=== PATIENT | female | born 1950 | race African-American/Black ===

== ENCOUNTER 2016-07-07 16:46 | Observation (INO) | payer MEDICARE ==
--- NOTE | 2016-07-07 17:04 | PDOC ---
History of Present Illness - General History Source: Patient Exam Limitations: No Limitations - History of Present Illness Initial Comments: 07/07/16 17:28 The patient is a 65 year old female brought via EMS, with a significant past medical history of diabetes and hypertension, who presents to the emergency department with nausea, vomit and lightheadedness onset today. She notes that she felt as if her blood pressure was high and took her medication. Her symptoms began shortly after. She notes that her vomit was nonbilious and nonbloody. The patient denies chest pain, shortness of breath and eadache. Denies fever, chills, diarrhea and constipation. Allergies: None Past surgical history: None reported Social history: No alcohol, tobacco or drug use reported <Shahram Healy - Last Filed: 07/07/16 18:10> <Kevon Jeong - Last Filed: 07/07/16 19:03> - General Chief Complaint: Nausea/Vomiting Stated Complaint: HYPERTENSION/N/V Time Seen by Provider: 07/07/16 17:04 Past History <Shahram Healy - Last Filed: 07/07/16 18:10> - Psycho/Social/Smoking Cessation Hx Suicidal Ideation: No Smoking History: Never smoked <Kevon Jeong - Last Filed: 07/07/16 19:03> - Past Medical History Allergies/Adverse Reactions: Allergies Allergy/AdvReac Type Severity Reaction Status Date / Time No Known Allergies Allergy Verified 07/07/16 16:55 Home Medications: Ambulatory Orders Aspirin [ASA -] 81 mg PO DAILY 07/07/16 Review of Systems - Review of Systems Able to Perform ROS?: Yes Comments:: 07/07/16 17:29 GENERAL/CONSTITUTIONAL: No fever or chills. No weakness. HEAD, EYES, EARS, NOSE AND THROAT: No change in vision. No ear pain or discharge. No sore throat. CARDIOVASCULAR: +Lightheadedness. No chest pain or shortness of breath RESPIRATORY: No cough, wheezing, or hemoptysis. GASTROINTESTINAL: +Nausea and vomiting. No diarrhea or constipation. GENITOURINARY: No dysuria, frequency, or change in urination. MUSCULOSKELETAL: No joint or muscle swelling or pain. No neck or back pain. SKIN: No rash NEUROLOGIC: No headache, loss of consciousness, or change in strength/sensation. ENDOCRINE: No increased thirst. No abnormal weight change HEMATOLOGIC/LYMPHATIC: No anemia, easy bleeding, or history of blood clots. ALLERGIC/IMMUNOLOGIC: No hives or skin allergy. <Shahram Healy - Last Filed: 07/07/16 18:10> *Physical Exam - Vital Signs Last Vital Signs Temp Pulse Resp BP Pulse Ox 97.5 F L 98 H 16 174/98 100 07/07/16 16:56 07/07/16 16:56 07/07/16 16:56 07/07/16 16:56 07/07/16 16:56 - Physical Exam Comments: 07/07/16 17:29 GENERAL: Awake, alert, and fully oriented, appears ill, slow to respond HEAD: No signs of trauma, normocephalic, atraumatic EYES: PERRLA, EOMI, sclera anicteric, conjunctiva clear ENT: Auricles normal inspection, hearing grossly normal, nares patent, oropharynx clear without exudates. Moist mucosa NECK: Normal ROM, supple, no lymphadenopathy, JVD, or masses LUNGS: No distress, speaks full sentences, clear to auscultation bilaterally HEART: Regular rate and rhythm, normal S1 and S2, no murmurs, rubs or gallops, peripheral pulses normal and equal bilaterally. ABDOMEN: Soft, nontender, normoactive bowel sounds. No guarding, no rebound. No masses EXTREMITIES: Normal inspection, Normal range of motion, no edema. No clubbing or cyanosis. NEUROLOGICAL: Cranial nerves II through XII grossly intact. Normal speech, normal gait, no focal sensorimotor deficits SKIN: Warm, Dry, normal turgor, no rashes or lesions noted. <Shahram Healy - Last Filed: 07/07/16 18:10> - Vital Signs Last Vital Signs Temp Pulse Resp BP Pulse Ox 97.5 F L 98 H 16 174/98 100 07/07/16 16:56 07/07/16 16:56 07/07/16 16:56 07/07/16 16:56 07/07/16 16:56 <Kevon Jeong - Last Filed: 07/07/16 19:03> ED Treatment Course - LABORATORY CBC & Chemistry Diagram: 07/07/16 17:20 07/07/16 17:30 - RADIOLOGY Radiograph Interpretation: 07/07/16 18:10 Chest X-Ray Reviewed by: Dr. Dieudonne Luu Impression: No evidence of active pulmonary disease. Head CT Reviewed by: Dr. Robert Crabtree Impression: There is no CT evidence of acute intracranial pathology. A small to moderate amount of nonspecific fluid accumulation is seen within the left mastoid air cells. <Shahram Healy - Last Filed: 07/07/16 18:10> - LABORATORY CBC & Chemistry Diagram: 07/07/16 17:20 07/07/16 17:30 <Kevon Jeong - Last Filed: 07/07/16 19:03> *DC/Admit/Observation/Transfer - Attestations Scribe Attestion: 07/07/16 17:29 Documentation prepared by Shahram Healy, acting as medical assistant secretary for Kevon Jeong MD <Shahram Healy - Last Filed: 07/07/16 18:10> - Discharge Dispostion Admit: Yes - Attestations Physician Attestion: 07/07/16 17:04 I, Dr. Kevon Jeong, attest that this document has been prepared under my direction and personally reviewed by me in its entirety. I further attest, that it accurately reflects all work, treatment, procedures and medical decision -making performed by me. <Kevon Jeong - Last Filed: 07/07/16 19:03> Diagnosis at time of Disposition: Hypertensive urgency - Discharge Dispostion Condition at time of disposition: Improved
[2016-07-07 17:17] VITALS: BMI 27.4
[2016-07-07] MEDS ORDERED: SODIUM CHLORIDE 500 ML IV STA ×2 (17:21→18:38)
[2016-07-07] MEDS ORDERED: cloNIDine HCL 0.1 MG TABLET PO ONE (17:24)
[2016-07-07] MEDS ORDERED: ONDANSETRON 4 MG/2 ML VIAL IVPB ONE (17:25)
[2016-07-07] MEDS ORDERED: ONDANSETRON 4 MG/2 ML VIAL ONE (17:33)
[2016-07-07] MEDS ORDERED: cloNIDine HCL 0.1 MG TABLET ONE (17:33)
[2016-07-07 17:53] LABS: BASOPHIL 0.5 % (0-2.0); EOSINOPHIL 0.1 % (0-4.5); MCH 29.9 pg (25.7-33.7); MCHC 34.8 g/dl (32.0-36.0); MEAN CELL VOLUME 85.8 fl (80-96); MEAN PLT VOLUME 8.9 fl (7.5-11.1); NEUTROPHILS 80.1 % (42.8-82.8); PLATELET COUNT 308 K/MM3 (134-434); RDW 12.9 % (11.6-15.6); WHITE BLOOD COUNT 10.7 K/mm3 (4.0-10.0)
[2016-07-07 18:10] LABS: INR 1.01 (0.82-1.09); PROTHROMBIN TIME (PATIENT) 11.1 SEC (9.98-11.88)
[2016-07-07 18:21] LABS: ALBUMIN 4.3 g/dl (3.4-5.0); ANION GAP 11 (8-16); BILIRUBIN,TOTAL 0.8 mg/dL (0.2-1.0); CALCIUM 10.2 mg/dL (8.5-10.1); CO2 25 mmol/L (21-32); CREATININE 0.7 mg/dL (0.55-1.02); GLUCOSE,RANDOM 212 mg/dL (74-106); MAGNESIUM 1.9 mg/dL (1.8-2.4); SGOT/AST 32 U/L (15-37); SGPT/ALT 65 U/L (12-78); TOT PROT 8.8 g/dl (6.4-8.2)
[2016-07-07 18:23] LABS: ALK PHOS 79 U/L (45-117); TROPONIN I < 0.02 ng/ml (0.00-0.05)
[2016-07-07 18:29] LABS: URINE APPEARANCE CLEAR; URINE BILIRUBIN NEGATIVE (NEGATIVE); URINE BLOOD NEGATIVE (NEGATIVE); URINE COLOR COLORLESS; URINE GLUCOSE (UA) 3+ (NEGATIVE); URINE KETONE 1+ (NEGATIVE); URINE LEUK ESTERASE NEGATIVE (NEGATIVE); URINE NITRITE NEGATIVE (NEGATIVE); URINE PROTEIN NEGATIVE (NEGATIVE); URINE UROBILINOGEN NEGATIVE E.U./dl (0.2-1.0)
[2016-07-07] MEDS ORDERED: hydrALAZINE HCL 20 MG/ML VIAL IVPUSH ONE (18:47)
[2016-07-07] MEDS ORDERED: hydrALAZINE HCL 20 MG/ML VIAL ONE (18:57)
--- NOTE | 2016-07-07 19:06 | PN ---
<Teo Coreas - Last Filed: 07/07/16 19:05> Teaching Attending Note Name of Resident: Sg Pedro ATTENDING PHYSICIAN STATEMENT I saw and evaluated the patient. I reviewed the resident's note and discussed the case with the resident. I agree with the resident's findings and plan as documented. SUBJECTIVE: OBJECTIVE: ASSESSMENT AND PLAN: <BijanLindsay - Last Filed: 07/07/16 21:09> Teaching Attending Note ATTENDING PHYSICIAN STATEMENT I saw and evaluated the patient. I reviewed the resident's note and discussed the case with the resident. I agree with the resident's findings and plan as documented. SUBJECTIVE: The patient is a 65 yo F with a PMHx of Diabetes, HTN who presents with nausea, vomiting and lightheadedness. Found to have uncontrolled HTN in the ED. 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 States she has had this in the past years and is not new. Patient denies chest pain, headache, dizziness or SOB. She denies fever, chills, diarrhea or constipation. She denies dysuria, frequency, urgency or hematuria. OBJECTIVE: Physical Last Vital Signs Temp Pulse Resp BP Pulse Ox 97.5 F L 103 H 18 175/87 98 07/07/16 16:56 07/07/16 18:58 07/07/16 18:58 07/07/16 18:58 07/07/16 18:58 GEN: NAD +R facial droop HEENT: NCAT, PERRL CARD: RRR, S1 S2 RESP: CTAB ABD: NT, BWS x4 EXT: - CCE SKIN: 5 cm x 3 cm lipoma on R upper back CBCD WBC 10.7 K/mm3 (4.0-10.0) H 07/07/16 17:20 RBC 4.23 M/mm3 (3.60-5.2) 07/07/16 17:20 Hgb 12.6 GM/dL (10.7-15.3) 07/07/16 17:20 Hct 36.3 % (32.4-45.2) 07/07/16 17:20 MCV 85.8 fl (80-96) 07/07/16 17:20 MCHC 34.8 g/dl (32.0-36.0) 07/07/16 17:20 RDW 12.9 % (11.6-15.6) 07/07/16 17:20 Plt Count 308 K/MM3 (134-434) 07/07/16 17:20 MPV 8.9 fl (7.5-11.1) 07/07/16 17:20 CMP Sodium 135 mmol/L (136-145) L 07/07/16 17:30 Potassium 3.5 mmol/L (3.5-5.1) 07/07/16 17:30 Chloride 99 mmol/L (98-107) 07/07/16 17:30 Carbon Dioxide 25 mmol/L (21-32) 07/07/16 17:30 Anion Gap 11 (8-16) 07/07/16 17:30 BUN 16 mg/dL (7-18) 07/07/16 17:30 Creatinine 0.7 mg/dL (0.55-1.02) 07/07/16 17:30 Creat Clearance w eGFR > 60 (>60) 07/07/16 17:30 Calcium 10.2 mg/dL (8.5-10.1) H 07/07/16 17:30 Total Bilirubin 0.8 mg/dL (0.2-1.0) 07/07/16 17:30 AST 32 U/L (15-37) 07/07/16 17:30 ALT 65 U/L (12-78) 07/07/16 17:30 Alkaline Phosphatase 79 U/L (45-117) 07/07/16 17:30 Total Protein 8.8 g/dl (6.4-8.2) H 07/07/16 17:30 Albumin 4.3 g/dl (3.4-5.0) 07/07/16 17:30 Imaging: Head CT Impression: There is no CT evidence of acute intracranial pathology. A small to moderate amount of nonspecific fluid accumulation is seen within the left mastoid air cells. Chest Xray Impression: No evidence of active pulmonary disease. EKG Impression: Sinus Tachycardia at 106 Increased QTC at 536 Q waves in septal leads ASSESSMENT AND PLAN: The patient is a 65 yo F with a PMHx of DM, HTN, CVA with R sided facial droop who is being admitted for uncontrolled HTN. 1.) Uncontrolled HTN -Most likely due to vomiting of home PO meds -restart home PO meds -Avoid ASHLEY as patient had previous angioedema -Trend troponins/EKG 2.) Vomiting -Most likely due to viral gastroenteritis -Continue with compazine 3.) History of CVA -Restart home meds -Continue with aspirin -Negative CT head 4.) Diabetes -Fingersticks -RAISS 5.)DVT PPx -Low risk -SCDs Patient admitted to Observation Telemetry. Documentation prepared by Lindsay Thakkar, acting as bilingual medical assistant for Teo Coreas MD
--- NOTE | 2016-07-07 20:51 | HP ---
Addendum entered and electronically signed by Sg Pedro RES 07/08/16 05:09 : BP well controlled after one dose of 25 mg lopressor po. Will change metoprolol to 25 mg po bid. Will need to find out what her home meds are and to be restarted on those instead of metoprolol. Original Note: CHIEF COMPLAINT: High blood pressure and nausea and vomiting PCP: clinic at [facility] Pharmacy: [facility] pharmacy and she uses a pharmacy on "[address] [facility] [address] [facility]" (which upon searching looks to be [facility] ) HISTORY OF PRESENT ILLNESS: 65 y/o F w/PMH of HTN, DM, hx of CVA, presents to ER after onset of nausea and vomiting this morning at approximately 11am. She states that she measured her blood pressure at the time and it was in systolic 170s. She took her blood pressure medication (unknown what med it is), and she threw up shortly after. She had 3-4x episodes of vomiting (non-bloody). She states that her BP at home runs anywhere from 108 systolic to 170s systolic. [facility] sees physicians [facility]. She was recently prescribed a new htn med 1 month ago because with the last one she tried she got facial swelling. She also complained of some light-headedness and as if her heart was racing this morning along with the vomiting. She denies any CP, SOB, palpitations, abd pain, diarrhea, dysuria , leg swelling, tinnitus, change in vision, headache. 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 Lives in [place]. Family History: Father: HTN Allergies No Known Allergies Allergy (Verified 07/07/16 16:55) HOME MEDICATIONS: Home Medications Medication Instructions Recorded Aspirin [ASA -] 81 mg PO DAILY 07/07/16 REVIEW OF SYSTEMS CONSTITUTIONAL: Absent: fever, chills, diaphoresis, generalized weakness, malaise, loss of appetite, weight change HEENT: Absent: rhinorrhea, nasal congestion, throat pain, throat swelling, difficulty swallowing, mouth swelling, ear pain, eye pain, visual changes CARDIOVASCULAR: heart racing, light-headedness Absent: chest pain, syncope, palpitations, irregular heart rate, peripheral edema RESPIRATORY: Absent: cough, shortness of breath, dyspnea with exertion, orthopnea, wheezing, stridor, hemoptysis GASTROINTESTINAL: nausea, vomiting Absent: abdominal pain, abdominal distension, diarrhea, constipation, melena, hematochezia GENITOURINARY: Absent: dysuria, frequency, urgency, hesitancy, hematuria, flank pain, genital pain MUSCULOSKELETAL: Absent: myalgia, arthralgia, joint swelling, back pain, neck pain SKIN: Absent: rash, itching, pallor HEMATOLOGIC/IMMUNOLOGIC: Absent: easy bleeding, easy bruising, lymphadenopathy, frequent infections ENDOCRINE: Absent: unexplained weight gain, unexplained weight loss, heat intolerance, cold intolerance NEUROLOGIC: Absent: headache, focal weakness or paresthesias, dizziness, unsteady gait, seizure, mental status changes, bladder or bowel incontinence PSYCHIATRIC: Absent: anxiety, depression, suicidal or homicidal ideation, hallucinations. PHYSICAL EXAMINATION Vital Signs - 24 hr 07/07/16 07/07/16 07/07/16 16:56 17:32 17:57 Temperature 97.5 F L Pulse Rate 98 H Pulse Rate [ 92 H 97 H Apical] Respiratory 16 18 21 Rate Blood Pressure 174/98 Blood Pressure 162/95 153/93 [Right Arm] O2 Sat by Pulse 100 97 95 Oximetry (%) 07/07/16 07/07/16 07/07/16 18:58 19:29 19:39 Temperature 98.5 F 98.3 F Pulse Rate Pulse Rate [ 103 H 103 H Apical] Respiratory 18 18 Rate Blood Pressure Blood Pressure 175/87 161/90 [Right Arm] O2 Sat by Pulse 98 100 Oximetry (%) GENERAL: Awake, alert, and fully oriented, in no acute distress. HEAD: Normal with no signs of trauma. EYES: Pupils equal, round and reactive to light, extraocular movements intact, sclera anicteric, conjunctiva clear. No lid lag. EARS, NOSE, THROAT: Ears normal, nares patent, oropharynx clear without exudates. Moist mucous membranes. NECK: Normal range of motion LUNGS: Breath sounds equal, clear to auscultation bilaterally. No wheezes, and no crackles. No accessory muscle use. HEART: Irregular, tachycardic, normal S1 and S2 without murmur, rub or gallop. ABDOMEN: Soft, nontender, not distended, normoactive bowel sounds, no guarding, no rebound, no masses. No hepatomegaly or splenomegaly. MUSCULOSKELETAL: Normal range of motion at all joints. No bony deformities or tenderness. No CVA tenderness. UPPER EXTREMITIES: 2+ pulses, warm, well-perfused. No cyanosis. No clubbing. No peripheral edema. Strength 5/5 B/L UE LOWER EXTREMITIES: 2+ pulses, warm, well-perfused. No calf tenderness. No peripheral edema. NEUROLOGICAL: Cranial nerves II-XII intact. Normal speech. Gait not observed. Sensation to touch equal B/L on face, B/L UE, B/L LE. PSYCHIATRIC: Cooperative. Good eye contact. Appropriate mood and affect. SKIN: Warm, dry, normal turgor, no rashes or lesions noted, normal capillary refill. Lipoma on upper back approximately 5x3 cm. Laboratory Results - last 24 hr 07/07/16 07/07/16 07/07/16 17:20 17:20 17:20 WBC 10.7 H RBC 4.23 Hgb 12.6 Hct 36.3 MCV 85.8 MCHC 34.8 RDW 12.9 Plt Count 308 MPV 8.9 Neutrophils % 80.1 Lymphocytes % 15.6 Monocytes % 3.7 L Eosinophils % 0.1 Basophils % 0.5 INR 1.01 Sodium Potassium Chloride Carbon Dioxide Anion Gap BUN Creatinine Creat Clearance w eGFR Random Glucose Calcium Magnesium Total Bilirubin AST ALT Alkaline Phosphatase Creatine Kinase Troponin I Total Protein Albumin Lipase Urine Color Colorless Urine Appearance Clear Urine pH 8.0 Ur Specific [place] 1.010 Urine Protein Negative Urine Glucose (UA) 3+ H Urine Ketones 1+ H Urine Blood Negative Urine Nitrite Negative Urine Bilirubin Negative Urine Urobilinogen Negative Ur Leukocyte Esterase Negative 07/07/16 17:30 WBC RBC Hgb Hct MCV MCHC RDW Plt Count MPV Neutrophils % Lymphocytes % Monocytes % Eosinophils % Basophils % INR Sodium 135 L Potassium 3.5 Chloride 99 Carbon Dioxide 25 Anion Gap 11 BUN 16 Creatinine 0.7 Creat Clearance w eGFR > 60 Random Glucose 212 H Calcium 10.2 H Magnesium 1.9 Total Bilirubin 0.8 AST 32 ALT 65 Alkaline Phosphatase 79 Creatine Kinase 64 Troponin I < 0.02 Total Protein 8.8 H Albumin 4.3 Lipase 332 Urine Color Urine Appearance Urine pH Ur Specific [place] Urine Protein Urine Glucose (UA) Urine Ketones Urine Blood Urine Nitrite Urine Bilirubin Urine Urobilinogen Ur Leukocyte Esterase Imaging: CXR: 07/07/16: no evidence of active pulm disease processes Head CT: no acute pathology. small to moderate nonspecific fluid accumulation as seen in L mastoid air cells. Active Medications Insulin Aspart (Novolog Vial Sliding Scale -) 1 vial SQ ACHS BARBARA PRN Reason: Protocol Metoprolol Tartrate (Lopressor -) 50 mg PO BID BARBARA Prochlorperazine Maleate (Compazine -) 5 mg PO Q4H PRN PRN Reason: NAUSEA AND/OR VOMITING ASSESSMENT/PLAN: 65 y/o F w/PMH of HTN, DM, hx of CVA, presents to ER after onset of nausea and vomiting this morning and elevated BP as measured at home (systolic 170s at home ). Admitted to tele obs for uncontrolled HTN. -Uncontrolled HTN -Unknown home meds. States she gave her pills to EMS but they weren't brought in with her to hospital by EMS. -Attempted to call [facility] pharmacy - did not get any response when I called. -Called [facility] pharmacy but they were unable to locate pt with Name and . They would need pt's EMR number which is on her card for the clinic but pt does not have the card with her. Card is at home in [place]. -Given HZN IV and clonidine in ER -Ordered lopressor po 25mg once for now -Lopressor 50 mg po bid starting tomorrow am -If able to find out home meds, can start on that instead -trop neg x1, f/u trops -TSH added on -Head CT neg; no signs of end organ damage at this time. 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 -DM -BGM, ISS ACHS -A1C added on -DVT ppx -SCDs -FEN -no fluids -mild hyponatremia, monitor -sodium/diabetic diet -Dispo: -monitor in obs/tele Problem List - Problem (1) Gastroenteritis and colitis, viral Code(s): A08.4 - VIRAL INTESTINAL INFECTION, UNSPECIFIED (2) Uncontrolled hypertension Code(s): I10 - ESSENTIAL (PRIMARY) HYPERTENSION (3) Diabetes Code(s): E11.9 - TYPE 2 DIABETES MELLITUS WITHOUT COMPLICATIONS Visit type - Emergency Visit Emergency Visit: Yes ED Registration Date: 07/07/16 Care time: The patient presented to the Emergency Department on the above date and was hospitalized for further evaluation of their emergent condition. - New Patient This patient is new to me today: Yes Date on this admission: 07/07/16 - Critical Care Critical Care patient: No
--- NOTE | 2016-07-07 20:53 | MSN ---
Admitting History and Physical - Primary Care Physician PCP: [facility] - Admission Chief Complaint: Nausea/vomiting History of Present Illness: This is a 65 y/o F with Pmx of hypertension and DM II, admitted from the ER for uncontrolled hypertension. Patient complained of feeling nauseous at around 11 am today and thought it was due to her hypertension. She took her home meds but had three episodes of vomiting shortly after. Patient also states that she was feeling lightheaded and dizzy during that time as well. Patient complains of no pain at current time. Patient's BP is usually maintained between 108 to 170 systolic. Patient denies fever/chills, shortness of breath, chest pain, headaches, diarrhea. 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 No: AFIB, Aneurysm, Aortic Insufficiency, Aortic Stenosis, CAD, CHF, Deep Vein Thrombosis, Hyperlipdemia, SC, Mitral Insufficiency, Mitral Stenosis, Murmur, Pulmonary Hypertension, Other Pulmonary: No: Asthma, Bronchitis, Cancer, COPD, O2 Dependent, Pneumonia, Previously Intubated, Pulmonary Embolus, Pulmonary Fibrosis, Sleep Apnea, Other Gastrointestinal: No: Ascites, Cancer, Constipation, Crohn's Disease, Diverticulitis, Diverticulosis, Esophageal Varices, Gastritis, GERD, GI Bleed, Hemorrhoids, Hiatal Hernia, Inflamatory Bowel Disease, Irritable Bowel Disease, Pancreatitis, Peptic Ulcer Disease, Ulcerative Colitis, Other Hepatobiliary: No: Cirrhosis, Cholelithiasis, Cholecystitis, Choledocholithiasis , Hepatitis A, Hepatitis B, Hepatitis C, Other Renal/: No: Renal Failure, Renal Inusuff, BPH, Cancer, Hematuria, Hemodialysis , Neurogenic Bladder, Renal Calculi, UTI, Other Reproductive: No: Ectopic , Endometriosis, Fibroids, PID, Polycystic Ovary Syndrome, Postmenopausal, Other ...: No Heme/Onc: No: Anemia, B12 Deficiency, Bleeding Disorder, Cancer, Current Chemotherapy, Current Radiation Therapy, Hemochromatosis, Hypercoaguable State, Myeloproliferative Synd, Sickle Cell Disease, Sickle Cell Trait, Thrombocytopenia, Other Infectious Disease: No: AIDS, C-Diff, Herpes Zoster, HIV, MRSA, STD's, Tuberculosis, VREF, Other Psych: No: Addictions, Anxiety, Bipolar, Depression, Panic, Psychosis, Schizophrenia, Other Musculoskeletal: No: Bursitis, Chronic low back pain, Hemiparesis, Hemiplegia, Osteoarthritis, Paraplegia, Other Rheumatology: No: Fibromyalgia, Gout, Lupus, Rheumatoid Arthritis, Sarcoidosis, Vasculitis, Other ENT: No: Allergic Rhinitis, Sinusitis, Other Endocrine: Yes: Diabetes Mellitus. No: Cliff's Disease, Alna's Disease, Diabetes Insipidus, Hyperparathyroidism, Hyperthyroidism, Hypothyroidism, Osteopenia, SIADH, Other Dermatology: No: Basal Cell, Cellulitis, Eczema, Melanoma, Psoriasis, Squamous Cell, Other - Past Surgical History Past Surgical History: Yes: None. No: AAA Repair, AICD, Amputation, Appendectomy, Arthrosocopy, AV Fistula/Graft, Bariatric Surgery, Breast Biopsy, Bypass, CABG, Carotid Endarterectomy, Cataract Removal, Cholecystectomy, Colectomy, Colonoscopy, Colostomy, Craniotomy, , Cystectomy, Hernia Repair, Hysterectomy, Ileal Conduit, Ileosotomy, Joint Replacement, Kidney Transplant, Laminectomy, Liver Transplant, Mastectomy, Nephrectomy, Oopherectomy , Orchiectomy, Permanent Pacemaker, Prostatectomy, Splenectomy, Stent, Thoracotomy, TURP, Tonsillectomy, Tubal Ligation, Upper Endoscopy, Valve Replacement, Vasectomy, Vein Stripping/Ligation - Smoking History Smoking history: Never smoked - Alcohol/Substance Use Hx Alcohol Use: No History of Substance Use: denies: None, Cocaine, Heroin, Marijuana, Prescription , Tranquilizers - Social History Usual Living Arrangement: Yes: With Spouse ADL: Independent History of Recent Travel: No Home Medications - Allergies Allergies/Adverse Reactions: Allergies Allergy/AdvReac Type Severity Reaction Status Date / Time No Known Allergies Allergy Verified 07/07/16 16:55 - Home Medications Home Medications: Ambulatory Orders Aspirin [ASA -] 81 mg PO DAILY 07/07/16 Family Disease History - Family Disease History Family Disease History: Heart Disease: Father Review of Systems - Review of Systems Constitutional: reports: No Symptoms Eyes: reports: No Symptoms HENT: reports: No Symptoms Neck: reports: No Symptoms Cardiovascular: reports: No Symptoms Respiratory: reports: No Symptoms Gastrointestinal: reports: Nausea, Vomiting Genitourinary: reports: No Symptoms Breasts: reports: No Symptoms Reported Musculoskeletal: reports: No Symptoms Integumentary: reports: No Symptoms Neurological: reports: Dizziness Endocrine: reports: No Symptoms Hematology/Lymphatic: reports: No Symptoms Psychiatric: reports: No Symptoms Physical Examination Vital Signs: Vital Signs Temperature 98.3 F 07/07/16 19:39 Pulse Rate 103 H 07/07/16 19:29 Respiratory Rate 18 07/07/16 19:29 Blood Pressure 161/90 07/07/16 19:29 O2 Sat by Pulse Oximetry (%) 100 07/07/16 19:29 Constitutional: Yes: Well Nourished, No Distress, Calm Eyes: Yes: WNL, Conjunctiva Clear, EOM Intact HENT: Yes: WNL, Atraumatic, Normocephalic Neck: Yes: WNL, Supple, Trachea Midline Cardiovascular: Yes: WNL, Tachycardia, Pulse Irregular, S1, S2 Respiratory: Yes: WNL, Regular, CTA Bilaterally Gastrointestinal: Yes: WNL, Normal Bowel Sounds, Soft Renal/: Yes: WNL Musculoskeletal: Yes: WNL Extremities: Yes: WNL Edema: No Peripheral Pulses WNL: Yes Integumentary: Yes: WNL Neurological: Yes: WNL, Alert, Oriented ...Motor Strength: WNL Psychiatric: Yes: WNL, Alert, Oriented Imaging - Results Chest X-ray: Report Reviewed (Unremarkable) Cat Scan: Report Reviewed (Unremarkable) Problem List - Problems (1) Uncontrolled hypertension Assessment/Plan: Hydralazine 10 mg IV Push ONCE given in ER Clonidine 0.1 mg PO ONCE given in ER Lopressor 25 mg PO ONCE given now Start Lopressor 50 mg BID PO in AM on 07/08/16 Continue home medications if able to get Trops neg x 1, f/u tomorrow Continue to monitor vitals Code(s): I10 - ESSENTIAL (PRIMARY) HYPERTENSION (2) Diabetes type 2, controlled Assessment/Plan: Start SSI Continue blood glucose checks Code(s): E11.9 - TYPE 2 DIABETES MELLITUS WITHOUT COMPLICATIONS Qualifiers: Diabetes mellitus complication status: without complication (3) Gastroenteritis and colitis, viral Assessment/Plan: Start Compazine 5 mg PO Q4H PRN for nausea No Reglan or Zofran due to patient's prolonged QT Continue to monitor labs, WBC, trend Code(s): A08.4 - VIRAL INTESTINAL INFECTION, UNSPECIFIED Assessment/Plan 49 y/o F with Pmx of hypertension and DMII, admitted from ER for uncontrolled hypertension and N/V secondary to possible gastroenteritis 1. Uncontrolled hypertension - Hydralazine 10 mg IV Push ONCE given in ER - Clonidine 0.1 mg PO ONCE given in ER - Lopressor 25 mg PO ONCE now - Start Lopressor 50 mg BID PO tomorrow in the AM - Continue home medications if able to find out - Continue to monitor vitals 2. Viral gastroenteritis - Start Compazine 5 mg PO Q4H PRN for nausea - AVOID Reglan and Zofran due to pt's prolonged QT - Continue to monitor WBC, trend down 3. DM 2 - Start SSI, ACHS - Blood glucose checks - Add on A1C 4. DVT Prophylaxis - SCDs Dispo: Switch from inpatient to OBS with telemetry
[2016-07-07] MEDS ORDERED: PROCHLORPERAZINE MALEATE 5 MG TABLET PO PRN (20:54)
[2016-07-07] MEDS ORDERED: METOPROLOL TARTRATE 25 MG TABLET (FP) PO ONE (20:54)
[2016-07-07] MEDS ORDERED: METOPROLOL TARTRATE 25 MG TABLET (FP) ONE (20:58)
[2016-07-07] MEDS ORDERED: METOPROLOL TARTRATE 50 MG TABLET (FP) PO SCH (22:00)
[2016-07-07] MEDS: INSULIN SLIDING SCALE (NOVOLOG) 1 VIAL SQ SCH (23:06)
[2016-07-08] MEDS: INSULIN SLIDING SCALE (NOVOLOG) 1 VIAL SQ SCH ×3 (06:14→18:02)
[2016-07-08 07:40] LABS: BASOPHIL 0.6 % (0-2.0); EOSINOPHIL 0.4 % (0-4.5); MCHC 34.7 g/dl (32.0-36.0); MEAN CELL VOLUME 86.4 fl (80-96); MEAN PLT VOLUME 8.9 fl (7.5-11.1); NEUTROPHILS 60.1 % (42.8-82.8); PLATELET COUNT 285 K/MM3 (134-434); RDW 12.7 % (11.6-15.6); WHITE BLOOD COUNT 9.5 K/mm3 (4.0-10.0)
[2016-07-08 07:59] LABS: THYROID STIMULATING HORMONE 0.79 uIU/ml (0.358-3.74)
[2016-07-08 09:24] LABS: ANION GAP 10 (8-16); CALCIUM 9.6 mg/dL (8.5-10.1); CO2 26 mmol/L (21-32); CREATININE 0.6 mg/dL (0.55-1.02); GLUCOSE,RANDOM 129 mg/dL (74-106)
[2016-07-08 09:26] LABS: TROPONIN I < 0.02 ng/ml (0.00-0.05)
[2016-07-08] MEDS ORDERED: METOPROLOL TARTRATE 25 MG TABLET (FP) PO SCH (10:00)
--- NOTE | 2016-07-08 12:47 | EKG ---
Test Reason : Blood Pressure : / mmHG Vent. Rate : 106 BPM Atrial Rate : 106 BPM P-R Int : 152 ms QRS Dur : 138 ms QT Int : 406 ms P-R-T Axes : 067 -07 015 degrees QTc Int : 539 ms POOR DATA QUALITY, INTERPRETATION MAY BE ADVERSELY AFFECTED SINUS TACHYCARDIA WITH PREMATURE ATRIAL COMPLEXES RIGHT BUNDLE BRANCH BLOCK ABNORMAL ECG WHEN COMPARED WITH ECG OF 07-JUL-2016 17:10, PREMATURE ATRIAL COMPLEXES ARE NOW PRESENT CRITERIA FOR SEPTAL INFARCT ARE NO LONGER PRESENT Confirmed by MYNOR SINCLAIR, JESSICA ([id number]) on 07/08/2016 12:47:29 PM Referred By: Confirmed By:JESSICA LOWE MD
--- NOTE | 2016-07-08 15:47 | PN ---
Teaching Attending Note Name of Resident: Dimple De Los Santos ATTENDING PHYSICIAN STATEMENT I saw and evaluated the patient. I reviewed the resident's note and discussed the case with the resident. I agree with the resident's findings and plan as documented. SUBJECTIVE: no fever or chills , no abd pain , No CP or SOB. no more N/V OBJECTIVE: NAD , AAOx3 CV : RRR Lungs : CTAB ext : no edema Abd :soft, NT, ND , NL BS ASSESSMENT AND PLAN: 65 y/o lady with h/o DM , HTN, CVA , , who presented with N/V and was found to have Hypertensive urgency 1- HTN urgency , improved . will have to confirm and adjust her home meds . For now , cont BB BID 2- N/V: resolved , likely due to viral gastritis . 3- /o DM : SSI here , confirm home meds dispo : will dc home today after adjusting meds
--- NOTE | 2016-07-08 16:17 | DS ---
Physical Exam: SUBJECTIVE: Patient seen and examined Patient resting in bed NAD. No acute events. vomiting resoled, last NB NB episode last night. She has mild nausea this Am but tolerates breakfast. SHe has no abd pain, no f/c, h/a, chest pain, cough, diarrhea or dysuria. OBJECTIVE: Vital Signs Period Temp Pulse Resp BP Sys/Le[place] Pulse Ox Last 24 Hr 97.8 F-98.6 F 64-105 18-20 106-162/56-102 95-99 PHYSICAL EXAM GENERAL: Awake, alert, and fully oriented, in no acute distress. HEAD: Normal with no signs of trauma. EYES: Pupils equal, round and reactive to light, extraocular movements intact, sclera anicteric, conjunctiva clear. No lid lag. EARS, NOSE, THROAT: Moist mucous membranes. NECK: Normal range of motion LUNGS: Breath sounds equal, clear to auscultation bilaterally. HEART: Irregular, tachycardic, normal S1 and S2 ABDOMEN: Soft, nontender, not distended, normoactive bowel sounds, no guarding, no rebound, no masses. No hepatomegaly or splenomegaly. MUSCULOSKELETAL: Normal range of motion at all joints. No bony deformities or tenderness. No CVA tenderness. UPPER EXTREMITIES: 2+ pulses, warm, well-perfused. No cyanosis. No clubbing. No peripheral edema. Strength 5/5 B/L UE LOWER EXTREMITIES: 2+ pulses, warm, well-perfused. No calf tenderness. No peripheral edema. NEUROLOGICAL: Cranial nerves II-XII grossly intact. Normal speech. Gait not observed. Sensation to touch equal B/L on face, B/L UE, B/L LE. PSYCHIATRIC: Cooperative. Good eye contact. Appropriate mood and affect. SKIN: Warm, dry, normal turgor, no rashes or lesions noted, normal capillary refill. Lipoma on upper back approximately 5x3 cm. LABS Laboratory Results - last 24 hr 07/07/16 07/08/16 07/08/16 22:13 05:35 05:35 WBC 9.5 RBC 3.85 Hgb 11.6 Hct 33.3 MCV 86.4 MCHC 34.7 RDW 12.7 Plt Count 285 MPV 8.9 Neutrophils % 60.1 D Lymphocytes % 31.3 D Monocytes % 7.6 D Eosinophils % 0.4 D Basophils % 0.6 Sodium Cancelled Potassium Cancelled Chloride Cancelled Carbon Dioxide Cancelled Anion Gap Cancelled BUN Cancelled Creatinine Cancelled POC Glucometer 204 Random Glucose Cancelled Calcium Cancelled Creatine Kinase Troponin I TSH 07/08/16 07/08/16 07/08/16 05:35 05:35 05:49 WBC RBC Hgb Hct MCV MCHC RDW Plt Count MPV Neutrophils % Lymphocytes % Monocytes % Eosinophils % Basophils % Sodium 141 Potassium 3.6 Chloride 105 Carbon Dioxide 26 Anion Gap 10 BUN 13 Creatinine 0.6 POC Glucometer 143 Random Glucose 129 H D Calcium 9.6 Creatine Kinase 49 Cancelled Troponin I < 0.02 Cancelled TSH 0.79 07/08/16 07/08/16 10:47 15:33 WBC RBC Hgb Hct MCV MCHC RDW Plt Count MPV Neutrophils % Lymphocytes % Monocytes % Eosinophils % Basophils % Sodium Potassium Chloride Carbon Dioxide Anion Gap BUN Creatinine POC Glucometer 155 156 Random Glucose Calcium Creatine Kinase Troponin I TSH HOSPITAL COURSE: Date of Admission:07/07/16 This is a 65 y/o F w PMH of HTN, IDDM, hx of CVA who presents to ER after onset of nausea and vomiting this morning at approximately 11am, 6 episodes of NBNB vomit. Last episode last night. In the afternoon before admission, after taking BP meds, her measured BP was 170s systolic. her baseline BP is poorly controlled and fluctuates between 180 systolic and 110 systolic. She states she takes a pill and insulin for her diabetes. She doesnt know her home meds and states that EMS took away her pills and never returned them. her symptoms resolved and she was d/cd home. Her meds are prescribed by clinicians at [facility] and she uses their inpatient pharmacy. The pharmacy, however cant find her in their system. We called another one of her pharmacies and confirmed home meds norvasc 5 9increased to 10 for better control) and atenolo, 100 d (changed to lopressor 25 bid). we added asa 81 d and metformin 500 bid. We will arrange a visiting nurse to come to see patient tomorrow and gather whatever records she can about her outpatient medication. Please ask her to page Dr De Los Santos at [phone] Date of Discharge: 07/08/16 Minutes to complete discharge: 30 (na) Discharge Summary Reason For Visit: HYPERTENSIVE URGENCY Current Active Problems Diabetes (Acute) Diabetes type 2, controlled (Acute) Gastroenteritis and colitis, viral (Acute) Hypertensive urgency (Acute) Uncontrolled hypertension (Acute) Condition: Good - Instructions Diet, Activity, Other Instructions: You were placed into telemetry observation in the hospital for uncontrolled hypertension and vomiting. You vomiting is likley due to viral gastroeneritis and resolved spontaneously. Your blood pressure is poorly controlled. Please take the following medications: Norvasc 10 mg daily and Lopressor (metoprolol tartare) 25 mg twice a day. Take baby aspirin daily. take Metformin 500 twice a day. follow up with your clinic doctor as soon as possible. You will have a visiting nurse see you tomorrow, She will check your records for medication history and confirm them with your pharmacy. She will then inform us. Please tell her to page Dr De Los Santos at [phone] Return to hospital if symptoms worsen Disposition: HOME - Home Medications Comprehensive Discharge Medication List: Ambulatory Orders Amlodipine Besylate [Norvasc -] 10 mg PO DAILY #30 tablet 07/08/16 Aspirin [ASA -] 81 mg PO DAILY #30 tab 07/08/16 Metformin HCl [Glucophage -] 500 mg PO BID@0700,1630 #60 tablet 07/08/16 Metoprolol Tartrate [Lopressor -] 25 mg PO BID #60 tablet 07/08/16 Problem List - Problems (1) Diabetes type 2, controlled Code(s): E11.9 - TYPE 2 DIABETES MELLITUS WITHOUT COMPLICATIONS Qualifiers: Diabetes mellitus complication status: without complication (2) Gastroenteritis and colitis, viral Code(s): A08.4 - VIRAL INTESTINAL INFECTION, UNSPECIFIED (3) Uncontrolled hypertension Code(s): I10 - ESSENTIAL (PRIMARY) HYPERTENSION This patient is new to me today: Yes Date on this admission: 07/08/16 Emergency Visit: Yes ED Registration Date: 07/07/16 Care time: The patient presented to the Emergency Department on the above date and was hospitalized for further evaluation of their emergent condition. Critical Care patient: No - Discharge Referral Referred to [facility] No
[2016-07-08] MEDS ORDERED: metFORMIN HCL 500 MG TABLET (FP) PO SCH (16:30)
[2016-07-08 19:07] VITALS: BP 130/80; PULSE 58; TEMP 98.8
[2016-07-09] MEDS ORDERED: ASPIRIN COATED 81 MG TABLET.EC PO SCH (10:00)
[2016-07-09] MEDS ORDERED: amLODIPine BESYLATE 10 MG TABLET (FP) PO SCH (10:00)
--- NOTE | 2016-07-10 10:10 | EKG ---
Test Reason : Blood Pressure : / mmHG Vent. Rate : 097 BPM Atrial Rate : 097 BPM P-R Int : 174 ms QRS Dur : 140 ms QT Int : 422 ms P-R-T Axes : 053 -02 015 degrees QTc Int : 535 ms NORMAL SINUS RHYTHM RIGHT BUNDLE BRANCH BLOCK ABNORMAL ECG NO PREVIOUS ECGS AVAILABLE Confirmed by MILTON ROJO MD ([id number]) on 07/10/2016 10:10:02 AM Referred By: Confirmed By:MILTON ROJO MD
== END 2016-07-08 18:30 | disposition home or self-care (01) ==
LOC: JER 16:46 → JERBED 19:52 → INTOOBSV 19:52 → J4W 22:02
PROVIDERS: ADMIT Internal Medicine; ATTEND Internal Medicine
DX: I16.0 Hypertensive urgency (principal); A08.4 Viral intestinal infection, unspecified; E11.9 Type 2 diabetes mellitus without complications; I69.392 Facial weakness following cerebral infarction; E87.1 Hypo-osmolality and hyponatremia; Z79.84 Long term (current) use of oral hypoglycemic drugs
CPT/HCPCS: 36415; 70450-TC; 71010-TC; 80048; 80053; 81003; 82550; 83036; 83690; 83735; 84443; 84484; 85025; 85610; 93005; 93010; 99285-25; G0378